=== PATIENT | female | born 1995 ===

== ENCOUNTER 2017-04-27 18:54 | Inpatient (IN) | payer MEDICAID ==
[2017-04-27] MEDS ORDERED: LACTATED RINGERS 1,000 ML IV ONE (21:00)
--- NOTE | 2017-04-27 21:38 | History and Physical Report ---
History of Present Illness Date of examination: 04/27/17 Chief complaint: Painful contractions Ruptured membranes since 09:00 today History of present illness: 21-year-old at 38+ weeks presents with ruptured membranes since ~ 09:00 today, she is a [employer] patient. care has been unremarkable she is GBS negative Past History Past Medical History: no pertinent history Past Surgical History: no surgical history [employer] History: denies: chlamydia, gonorrhea, hepatitis B, hepatitis C, herpes, HIV , syphilis, trichomonas Social history: single, full code. denies: smoking, alcohol abuse, prescription drug abuse, IV drug use - Obstetrical History Expected Date of Delivery: 05/08/17 Actual Gestation: 38 Week(s) 3 Day(s) : 1 Para: 0 Medications and Allergies Allergies Allergy/AdvReac Type Severity Reaction Status Date / Time No Known Allergies Allergy Verified 04/27/17 19:44 Active Meds: Active Medications Lactated Ringer's (Lactated Ringers) 1,000 mls @ 999 mls/hr IV BOLUS ONE Stop: 04/27/17 22:00 Review of Systems Constitutional: no fever, no chills, no sweats, no fatigue, no chronic headaches Cardiovascular: no chest pain, no orthopnea, no palpitations, no rapid/ irregular heart beat, no edema, no syncope, no lightheadedness, no shortness of breath, no dyspnea on exertion, no high blood pressure Respiratory: no cough, no cough with sputum, no excessive sputum, no hemoptysis , no shortness of breath, no dyspnea on exertion Gastrointestinal: no abdominal pain, no nausea, no vomiting Genitourinary: leakage of fluid, no vaginal bleeding, no vaginal discharge - Vital Signs Vital signs: Vital Signs Pulse BP 110 H 119/84 04/27/17 19:40 04/27/17 19:40 Temp Pulse Resp BP Pulse Ox 110 H 119/84 04/27/17 19:40 04/27/17 19:40 - Physical Exam Cardiovascular: Regular rate, Normal S1, Normal S2 Lungs: Positive: Clear to auscultation, Normal air movement Abdomen: Positive: normal appearance, soft. Negative: distention, tenderness, guarding, rigidity Genitourinary (Female): Positive: normal external genitalia Uterus: Positive: enlarged (EFW ~ 3400) Adnexa: both: normal Extremities: Positive: normal - Obstetrical FHR: category 2 Cervical Dilatation: 3 (per RN) Results All other labs normal. Assessment and Plan A: 21-year-old at 38+3 with ruptured membranes -Category 2 tracing (single decel now resolved) P: -Admit -Routine labs -Epidural when necessary -Expectant management - Patient Problems (1) 38 weeks gestation of Current Visit: Yes Status: Acute (2) Spontaneous rupture of amniotic membranes Current Visit: Yes Status: Acute
[2017-04-27] MEDS ORDERED: MINERAL OIL PO PRN (21:39)
[2017-04-27] MEDS ORDERED: BRETHINE SUB-Q PRN (21:39)
[2017-04-27] MEDS ORDERED: ePHEDrine SULFATE IV PRN (21:39)
[2017-04-27] MEDS ORDERED: BRETHINE IVP PRN (21:39)
[2017-04-27] MEDS ORDERED: ZOFRAN IV PRN (21:39)
[2017-04-27] MEDS ORDERED: XYLOCAINE 2% INFILTRATI ONE (21:39)
[2017-04-27] MEDS ORDERED: SUBLIMAZE IV PRN (21:39)
[2017-04-27] MEDS ORDERED: PITOCin/NS 20 UNIT/1000ML DRIP 20 UNITS/1,000 ML BAG IV SCH (22:00)
[2017-04-27] MEDS ORDERED: LACTATED RINGERS 1,000 ML IV SCH (22:00)
[2017-04-27] MEDS ORDERED: PITOCin/NS 30 UNIT/500ML 30 UNITS/500 ML BAG IV SCH (22:00)
[2017-04-27 22:02] LABS: Hematocrit 37.4 % (30.3-42.9); Hemoglobin 12.5 gm/dl (10.1-14.3); Mean Corpuscular HGB Conc 33 % (30-34); Mean Corpuscular Hemoglobin 29 pg (28-32); Mean Corpuscular Volume 88 fl (79-97); Platelet Count 267 K/mm3 (140-440); Red Blood Count 4.24 M/mm3 (3.65-5.03); Red Cell Distribution Width 13.1 % (13.2-15.2); White Blood Count 19.3 K/mm3 (4.5-11.0)
[2017-04-28] MEDS ORDERED: LANSINOH TP PRN (00:52)
[2017-04-28] MEDS ORDERED: DULCOLAX PR PRN (00:52)
[2017-04-28] MEDS ORDERED: ZOFRAN IV PRN (00:52)
[2017-04-28] MEDS ORDERED: PHENERGAN PR PRN (00:52)
[2017-04-28] MEDS ORDERED: MILK OF MAGNESIA PO PRN (00:52)
[2017-04-28] MEDS ORDERED: PHENERGAN PO PRN (00:52)
[2017-04-28] MEDS ORDERED: BENADRYL PO PRN (00:52)
[2017-04-28] MEDS ORDERED: TYLENOL PO PRN (00:52)
--- NOTE | 2017-04-28 00:52 | Procedure Note ---
OB Delivery Note - Delivery Date of Delivery: 04/28/17 Surgeon: ADE BOWMAN Estimated blood loss: 300cc - Vaginal Delivery presentation: vertex Delivery position: OA Delivery induction: none Delivery monitor: external FHT, external uterine Route of delivery: Delivery placenta: spontaneous Delivery cord: 3 umbilical vessels Episiotomy: none Delivery laceration: 1st degree (not repaired) Anesthesia: none - A at 1 minute: 8 at 5 minutes: 9 Infant Gender: Female (delivery at 12:34 AM, infant weight 7 lbs. 2 oz. or 3228 g)
[2017-04-28] MEDS ORDERED: SODIUM CHLORIDE FLUSH SYRINGE 10 ML IV NR (01:00)
[2017-04-28] MEDS: TUCKS PAD TP PRN ×2 (03:31→23:36)
[2017-04-28] MEDS: MOTRIN PO SCH ×3 (06:00→23:35)
[2017-04-28] MEDS: NORCO 5/325 PO PRN ×2 (07:14→13:00)
[2017-04-28] MEDS ORDERED: DERMOPLAST TP PRN (07:30)
[2017-04-28] MEDS ORDERED: SENOKOT S PO SCH (10:00)
[2017-04-28] MEDS: COLACE PO SCH ×2 (12:34→23:35)
[2017-04-28] MEDS: PRENATAL VITAMIN PO SCH (12:34)
[2017-04-28] MEDS: FEOSOL PO SCH ×2 (12:35→23:35)
[2017-04-28 12:48] LABS: Hematocrit 31.8 % (30.3-42.9); Hemoglobin 10.7 gm/dl (10.1-14.3)
[2017-04-29] MEDS: MOTRIN PO SCH ×4 (05:27→18:23)
--- NOTE | 2017-04-29 09:06 | Progress Note ---
Assessment and Plan - Patient Problems (1) 38 weeks gestation of Current Visit: Yes Status: Acute (2) (normal spontaneous vaginal delivery) Current Visit: Yes Status: Acute Plan to address problem: Patient is doing well. She is being discharged home. She will F/U in 6 weeks in office. (3) Anemia Current Visit: Yes Status: Acute Plan to address problem: Continue iron. Subjective - Subjective Date of service: 04/29/17 Principal diagnosis: S/P Interval history: Patient delivered via 2 days ago. She denies any complaint this AM. Vitals are stable. Objective - Vital Signs Latest vital signs: Vital Signs Temp Pulse Resp BP Pulse Ox 04/29/17 00:30 98.6 F 69 16 105/71 04/28/17 20:30 98.6 F 66 16 106/72 04/28/17 16:50 98.5 F 84 18 109/83 99 04/28/17 13:00 20 Intake and Output 04/28/17 04/29/17 04/29/17 23:59 07:59 15:59 Intake Total 850 600 Output Total 600 Balance 250 600 Intake: Oral 550 Intake, Free Water 300 600 Output: Urine 600 Indwelling Catheter 600 Other: Total, Intake Amount 550 Total, Output Amount 300 - Exam Cardiovascular: Present: Normal S1, Normal S2 Lungs: Present: Clear to auscultation Vulva: both: normal Deep Tendon Reflex Grade: Normal +2
--- NOTE | 2017-04-29 09:08 | Discharge Summary ---
Providers - Providers Date of Admission: 04/27/17 21:51 Date of discharge: 04/29/17 Attending physician: MANPREET SANDOVAL MD Primary care physician: MANPREET SANDOVAL MD Hospitalization Delivery: Episiotomy: midline Laceration: 2nd degree Discharge diagnosis: IUP at term delivered Hospital course: Patient has has an uneventful post course. She denies any complaint. Condition at discharge: Stable Disposition: DC-01 TO HOME OR SELFCARE - Discharge Diagnoses (1) 38 weeks gestation of Status: Acute (2) (normal spontaneous vaginal delivery) Status: Acute Comment: F/U in 6 weeks in office. (3) Anemia Status: Acute Qualifiers: Anemia type: iron deficiency Comment: Continue iron. Plan - Discharge Medications Prescriptions: HYDROcodone/APAP 5-325 [[place] 5/325] 1 each PO Q6HR PRN #7 tablet PRN Reason: Pain Ibuprofen [Motrin 600 MG tab] 600 mg PO Q8H PRN #30 tablet PRN Reason: Pain Multivitamin with Iron [Multivitamins with Iron] 1 each PO DAILY #30 tablet - Provider Discharge Summary Activity: routine Diet: routine Instructions: routine Additional instructions: [] Smoking cessation referral if applicable(refer to patient education folder for contact #) [] Refer to [facility] Booklet Call your doctor immediately for: * Fever > 100.5 * Heavy vaginal bleeding ( >1 pad per hour) * Severe persistent headache * Shortness of breath * Reddened, hot, painful area to leg or breast * Drainage or odor from incision. * Keep incision clean and dry at all times and follow doctor's instructions regarding bathing/showering - Follow up plan Follow up: MANPREET SANDOVAL MD [Primary Care Provider] - 7 Days
[2017-04-29] MEDS: COLACE PO SCH (13:24)
[2017-04-29] MEDS: FEOSOL PO SCH (13:24)
[2017-04-29] MEDS: PRENATAL VITAMIN PO SCH (13:24)
[2017-04-30] MEDS: FEOSOL PO SCH ×2 (00:23→12:18)
[2017-04-30] MEDS: COLACE PO SCH ×2 (00:23→12:18)
[2017-04-30] MEDS: MOTRIN PO SCH ×3 (00:23→12:18)
--- NOTE | 2017-04-30 10:28 | Progress Note ---
Assessment and Plan - Patient Problems (1) 38 weeks gestation of Current Visit: Yes Status: Acute (2) (normal spontaneous vaginal delivery) Current Visit: Yes Status: Acute Plan to address problem: Patient is doing well. She is being discharged home. She will F/U in 6 weeks in office. (3) Anemia Current Visit: Yes Status: Acute Qualifiers: Anemia type: iron deficiency Plan to address problem: Continue iron. Subjective - Subjective Date of service: 04/30/17 Principal diagnosis: S/P Interval history: Patient delivered via 2 days ago. She denies any complaint this AM. Vitals are stable. Objective - Vital Signs Latest vital signs: Vital Signs Temp Pulse Resp BP Pulse Ox 04/30/17 00:30 98.6 F 71 16 105/71 04/29/17 16:10 98.8 F 91 H 20 110/75 98 Intake and Output 04/29/17 04/30/17 04/30/17 23:59 07:59 15:59 Intake Total 360 600 Output Total 1350 Balance -990 600 Intake: Oral 360 Intake, Free Water 600 Output: Urine 1350 Indwelling Catheter 1000 Void 350 Other: Total, Intake Amount 360 Total, Output Amount 350 - Exam Cardiovascular: Present: Normal S1, Normal S2 Lungs: Present: Clear to auscultation Vulva: both: normal Deep Tendon Reflex Grade: Normal +2
[2017-04-30] MEDS: PRENATAL VITAMIN PO SCH (12:18)
[2017-04-30] MEDS: TUCKS PAD TP PRN (12:35)
[2017-04-30 15:59] VITALS: BP 114/71
== END 2017-04-30 13:00 | disposition home or self-care (01) | DRG 775 ==
LOC: TRG 18:54 → LD 21:51 → OB 04-28 02:25
PROVIDERS: ADMIT Obstetrics & Gynecology; ATTEND Obstetrics & Gynecology
PROC: 10E0XZZ Delivery of Products of Conception, External Approach (ICD-10-PCS; principal; 2017-04-28)
DX: O76 Abnormality in fetal heart rate and rhythm complicating labor and delivery (principal); Z3A.38 38 weeks gestation of pregnancy; Z37.0 Single live birth; O90.81 Anemia of the puerperium; D64.9 Anemia, unspecified; O70.0 First degree perineal laceration during delivery; O42.92 Full-term premature rupture of membranes, unspecified as to length of time between rupture and onset of labor
CPT/HCPCS: 36415; 85014; 85018; 85027; 86592; 86850; 86900; 86901; 99211; A6250; G0463; J2590; J3010; J7120